=== PATIENT | female | born 2000 | race Caucasian/White ===

== ENCOUNTER 2020-07-03 20:36 | Emergency (ER) | payer BC, SELFPAY ==
[~2020-07-03] VITALS: Ht 160 cm; Wt 82.8 kg
--- NOTE | 2020-07-04 01:35 | REPVR ---
PROCEDURE INFORMATION: Exam: XR Chest, 2 Views Exam date and time: 07/04/2020 1:01 AM Age: 19 years old Clinical indication: Other: Cough; Additional info: Cough, pleuritic cp TECHNIQUE: Imaging protocol: XR of the chest Views: 2 views. COMPARISON: No relevant prior studies available. FINDINGS: Lungs: Unremarkable. No consolidation. Pleural spaces: Unremarkable. No pleural effusion. No pneumothorax. Heart/Mediastinum: Unremarkable. No cardiomegaly. Bones/joints: Unremarkable. IMPRESSION: No acute infiltrates. Electronically signed by: Abiodun Stringer On 07/04/2020 01:35:27 AM
[2020-07-04 02:30] LABS: BASO % 0.4 % (0.0-1.0); EOS # 0.1 10^3/uL (0.0-0.5); EOS % 1.8 % (0.0-3.0); HEMATOCRIT 44.4 % (36.0-47.0); HEMOGLOBIN 14.5 g/dl (12.0-15.5); LYMPH # 2.7 10^3/uL (1.5-5.0); MEAN CORPUSCULAR HEMOGLOBIN 29.8 pg (27.0-33.0); MEAN CORPUSCULAR HGB CONC 32.7 g/dl (32.0-36.5); MEAN CORPUSCULAR VOLUME 91.2 fl (80.0-96.0); MONO # 0.5 10^3/uL (0.0-0.8); NEUTROPHILS # 1.8 10^3/uL (1.5-8.5); NEUTROPHILS % 35.6 % (36.0-66.0); PLATELET COUNT, AUTOMATED 333 10^3/uL (150-450); RED BLOOD COUNT 4.87 10^6/uL (4.00-5.40); WHITE BLOOD COUNT 5.1 10^3/uL (4.0-10.0)
[2020-07-04] MEDS ORDERED: NS 1,000 ML IV ONE (02:45)
[2020-07-04] MEDS ORDERED: ACETAMINOPHEN 325 MG TAB PO ONE (02:45)
[2020-07-04 02:48] LABS: INR 0.94; PROTHROMBIN TIME 12.8 SECONDS (12.5-14.3)
[2020-07-04 02:49] LABS: PARTIAL THROMBOPLASTIN TIME 27.5 SECONDS (24.2-38.5)
[2020-07-04 02:51] LABS: D-DIMER QUANT 530.62 ng/ml (<500)
[2020-07-04 02:53] LABS: RSV AMPLIFICATION NEGATIVE (NEGATIVE)
[2020-07-04 03:01] LABS: ALBUMIN 4.4 GM/DL (3.2-5.2); ALT/SGPT 20 U/L (12-78); BILIRUBIN,DIRECT 0.1 MG/DL (0.0-0.2); BILIRUBIN,TOTAL 0.4 MG/DL (0.2-1.0); CK-MB VALUE MASS < 1.0 NG/ML (<3.6); CPK CREATINE PHOSPHOKINASE 49 U/L (26-192); MAGNESIUM LEVEL 2.1 MG/DL (1.8-2.4); MB/CK RELATIVE INDEX 2.04 (< OR =4); TOTAL PROTEIN 8.3 GM/DL (6.4-8.2); TROPONIN I < 0.02 NG/ML (< 0.10)
[2020-07-04] MEDS ORDERED: ISOVUE-370 76% 100ML VIAL As Ordered ONE (03:41)
--- NOTE | 2020-07-04 04:01 | REPVR ---
PROCEDURE INFORMATION: Exam: CT Angiography Chest With Contrast Exam date and time: 07/04/2020 3:31 AM Age: 19 years old Clinical indication: Cough and shortness of breath; Patient HX: Covid pos; Additional info: Cough, SOB, ddimer TECHNIQUE: Imaging protocol: Computed tomographic angiography of the chest with intravenous contrast. 3D rendering (Not supervised by radiologist): MIP and/or 3D reconstructed images were created by the technologist. Radiation optimization: All CT scans at this facility use at least one of these dose optimization techniques: automated exposure control; mA and/or kV adjustment per patient size (includes targeted exams where dose is matched to clinical indication); or iterative reconstruction. Contrast material: ISO; Contrast volume: 75 ml; Contrast route: INTRAVENOUS (IV); COMPARISON: CR Chest, 2 view PA, Lat 07/04/2020 1:09 AM FINDINGS: Pulmonary arteries: Normal. No pulmonary emboli. Aorta: Unremarkable. No aortic aneurysm. No aortic dissection. Bronchial tree: Visualized bronchial tree is unremarkable. Lungs: Unremarkable. No consolidation. No masses. Pleural spaces: Unremarkable. No pneumothorax. No pleural effusion. Heart: Unremarkable. No cardiomegaly. No pericardial effusion. Lymph nodes: Unremarkable. No enlarged lymph nodes. Bones/joints: Unremarkable. No acute fracture. Soft tissues: Unremarkable. IMPRESSION: 1. Negative for pulmonary emboli. 2. No acute infiltrates. 3. No CT findings present to indicate pneumonia. Note that CT may be negative in the early stages of COVID-19. REFERENCES: Erick Grubbs et al., [employer] Society of [place] Expert Consensus Statement on Reporting Chest CT Findings Related to COVID-19. Endorsed by the Society of [employer] Radiology, the [place] [employer], and [employer]NA, Aug 2019. Electronically signed by: Abiodun Stringer On 07/04/2020 04:01:30 AM
--- NOTE | 2020-07-04 04:59 | REPVR ---
PROCEDURE INFORMATION: Exam: US Duplex Lower Extremity Veins, Bilateral Exam date and time: 07/04/2020 4:23 AM Age: 19 years old Clinical indication: Pain; Leg, upper; Bilateral; Additional info: Leg cramping, COVID positive. Positive ddimer TECHNIQUE: Imaging protocol: Real-time duplex ultrasound of the extremities with 2-D reese scale, color Doppler flow and spectral waveform analysis with image documentation. Complete exam focused on the bilateral lower extremity veins. COMPARISON: No relevant prior studies available. FINDINGS: Right deep veins: Unremarkable. The common femoral, femoral, proximal profunda femoral and popliteal veins are patent without thrombus. Normal Doppler waveforms. Normal compressibility and/or augmentation response. Right superficial veins: Saphenofemoral junction is patent without thrombus. Left deep veins: Unremarkable. The common femoral, femoral, proximal profunda femoral and popliteal veins are patent without thrombus. Normal Doppler waveforms. Normal compressibility and/or augmentation response. Left superficial veins: Saphenofemoral junction is patent without thrombus. Soft tissues: Unremarkable. IMPRESSION: No evidence of deep vein thrombosis. Electronically signed by: Abiodun Stringer On 07/04/2020 04:59:08 AM
[2020-07-04 05:28] VITALS: BP 119/79
--- NOTE | 2020-07-04 05:38 | ECGEPIP ---
[facility] - ED Test Date: 2020-07-03 Pat Name: GIANFRANCO MOHAMUD Department: Room: - Gender: Female [employer] Technician: sr : 2000 Requested By: YOKASTA Leon PA-C Order Number: [id number] Reading MD: Miguel Luis Measurements Intervals [place] Rate: 75 P: 40 [place]: 136 QRS: -6 QRSD: 94 T: 30 QT: 386 QTc: 434 Interpretive Statements SINUS RHYTHM POOR R WAVE PROGRESSION NO PRIORS FOR COMPARISON Electronically Signed on 07-04-2020 5:38:04 EST by Miguel Luis
== END 2020-07-04 05:30 | disposition home or self-care (01) ==
LOC: M ED 20:36
DX: U07.1 COVID-19 (principal); Z97.5 Presence of (intrauterine) contraceptive device
CPT/HCPCS: 71046; 71275; 80047; 80076; 82550; 82553; 83735; 84484; 84702; 85025; 85379; 85610; 85730; 87631; 93005; 93970; 96360; 96361; 99284; Q9967